=== PATIENT | female | born 1995 | race Caucasian/White ===

== ENCOUNTER 2018-07-21 19:43 | Emergency (ER) | payer MEDICAID ==
[~2018-07-21] VITALS: Ht 162.6 cm; Wt 80.8 kg
[2018-07-21] MEDS ORDERED: KETOROLAC 30MG/ML VIAL IM ONE (20:00)
[2018-07-21 21:01] VITALS: BP 127/62
== END 2018-07-21 21:02 | disposition home or self-care (01) ==
LOC: ER 19:43
DX: S60.211A Contusion of right wrist, initial encounter (principal); W22.8XXA Striking against or struck by other objects, initial encounter; Y93.89 Activity, other specified; Y92.89 Other specified places as the place of occurrence of the external cause; Y99.8 Other external cause status; Z90.49 Acquired absence of other specified parts of digestive tract
CPT/HCPCS: 29125; 73110; 81025; 96372; 99283; J1885